=== PATIENT | female | born 1975 | race Caucasian/White ===

== ENCOUNTER 2018-02-02 08:25 | Inpatient (IN) ==
--- NOTE | 2018-02-02 07:21 | Discharge Summary ---
<Gurwinder Paris - Last Filed: 02/02/18 08:44> Orders not resulted at time of discharge: Pending orders 02/02/18 07:13 XR shoulder complete RT [XR] Routine H/H [Hemoglobin and Hematocrit] [HEME] Routine - Discharge Diagnosis (1) Rotator cuff arthropathy of right shoulder Priority: Primary Status: Chronic (2) Status post reverse arthroplasty of right shoulder Priority: Primary Status: Acute - Hospital Course Hospital course: Ms. Nguyễn is a 42 year old female - Time Spent with Patient Total time spent providing and/or coordinating discharge services: - Discharge Medications Home Medications: Albuterol Sulfate [Proair Hfa] 2 puff IH Q4-6H PRN 02/02/18 [History] FLUoxetine HCl [Fluoxetine HCl] 80 mg PO DAILY 02/02/18 [History] Ibuprofen [Motrin] 600 mg PO TID 02/02/18 [History] Loratadine [Claritin] 10 mg PO DAILY 02/02/18 [History] Losartan Potassium [Cozaar] 100 mg PO DAILY 02/02/18 [History] OxyCODONE Immed Rel [Roxicodone 5 MG] 5 mg PO Q6HR PRN 7 Days #28 tablet 02/02/18 [Rx] Tizanidine HCl 4 mg PO HS 02/02/18 [History] Allergies/Adverse Reactions: Allergy/AdvReac Type Severity Reaction Status Date / Time codeine Allergy See Verified 08/15/17 10:08 Comments vancomycin Allergy See Verified 08/15/17 10:08 Comments morphine AdvReac Itching Verified 10/17/17 07:47 Primary care physician: Domitila Cha CNP - Patient Status Disposition: Home, Self-Care Condition: Good - Discharge Instructions Follow Up With: Domitila Cha CNP [Primary Care Provider] - Additional Instructions: Discharge Instructions: Total Shoulder Please call [facility] ([phone]), your Primary Care Physician, or report to the Emergency Room if you have any of the following symptoms: Nausea, vomiting, fever greater that 101.5, swelling, chest pain, shortness of breath, increased pain/redness/drainage/odor for your incision site, numbness/tingling, or any other concerning symptoms. ACTIVITY: Always keep your arm in the sling. Do not raise your arm away from your body. Do not use your arm to help with getting in or out of bed. No weight bearing permitted. Only perform those exercises given to you by your therapist. Incentive Spirometer 10 times an hour. MEDICATIONS: Upon discharge resume your home medications. Take all the medications as prescribed. Take a stool softener if taking narcotic pain medications. Stool softeners are only effective if you drink enough fluids. Drink 6-8 glass of water or fluids a day, unless this is not allowed for another health problem. Despite using stool softeners, if you haven't had a bowel movement in 3 days, please switch to a gentle laxative. Gentle laxatives are sold over the counter. You should have a bowel movement within 24 hours, if not call the office. You will be discharged from the hospital with a prescription for pain medication. You are encouraged to decrease the use of narcotic pain medication as tolerated. Should you require a refill, please call the office. [facility] prescribes narcotic pain medication for only 4-6 weeks after surgery. If you require pain medication beyond this time period, you may be referred to your Primary Care Physician or to the Pain Clinic for further evaluation. Plan ahead for refills on pain medication as many narcotics either need to be picked up at the office or mailed. It is best to call 48-72 hours in advance of needing a prescription refill so you don't run out of medication. To help control the post-operative pain, you may take NSAIDs (Aleve,Advil, Motrin, Ibuprofen, Naprosyn) or Tylenol as prescribed on the bottle in addition to the pain medication. WOUND CARE: Leave the dressing on for 7-10 days. You may change the dressing if it becomes saturated greater than 50%. Do not get the dressing wet at anytime. Wash your hands with antibacterial soap, rinse and dry prior to any wound care. If you have katerine the visiting nurse or rehab facility can remove the stapes 10-14 days after surgery and place steri-strips across the wound. Leave the steri-strips in place until they fall off on their own. You may let water from the shower run on top of the steri-strips. If you do not have a visiting nurse or rehab facility, you will need to return to the office at 10-14 days for the katerine to be removed. If you have itching or redness around the dressing call the office. FOLLOW-UP: Please follow up with your surgeon in the orthopedic clinic, as scheduled <Marianna Santos - Last Filed: 02/02/18 20:05> Orders not resulted at time of discharge: Pending orders 02/02/18 07:13 XR shoulder complete RT [XR] Routine H/H [Hemoglobin and Hematocrit] [HEME] Routine Date of Encounter: 02/02/18 Time of Encounter: 20:01 - Discharge Diagnosis (1) Status post reverse arthroplasty of right shoulder Priority: Primary Status: Acute Comments: Opsite dressing, leave intact until first post-operative visit. Zipline in place, plan to remove at post-operative day #14-16. If dressing becomes >50% saturated, contact office, remove dressing and place appropriate dressing in its place. Do not allow for dressing to get wet. Shoulder Precautions x 6 weeks. Apply cold therapy wrap 3-6x/day for 20 minutes at a time. Encourage ambulation throughout the day. Use Incentive spirometer 10x/hour. Elevate affected extremity above heart as tolerated. NWB to affected upper extremity x 6 weeks. Will remove brace at first post-operative appointment. OK to remove during PT/OT and Home exercises. (2) Rotator cuff arthropathy of right shoulder Priority: Primary Status: Chronic (3) HTN (hypertension) Priority: Secondary Status: Chronic Qualifiers: Hypertension type: essential hypertension Qualified Code(s): I10 - Essential (primary) hypertension (4) Asthma Priority: Secondary Status: Chronic Qualifiers: Asthma severity: unspecified severity Asthma persistence: unspecified Asthma complication type: uncomplicated Qualified Code(s): J45.909 - Unspecified asthma, uncomplicated - Hospital Course Hospital course: Ms. Nguyễn is a 42 year old female status post Right TSR-reverse [place]- . Patient had uneventful postoperative course. Stable for discharge. A&O x 3 Afebrile, vital signs stable. Vital Signs Temp Pulse Resp BP Pulse Ox 02/02/18 14:58 98.8 F 98 14 117/79 97 02/02/18 13:47 98.8 F 92 16 103/84 97 02/02/18 12:47 98.3 F 87 16 122/97 98 02/02/18 12:14 98.9 F 80 16 114/73 100 02/02/18 11:45 98.7 F 90 16 116/65 100 02/02/18 11:32 97.6 F 80 16 115/74 100 02/02/18 11:22 82 16 118/60 100 02/02/18 11:12 97.6 F 75 16 120/62 100 02/02/18 11:02 86 18 121/80 100 02/02/18 10:52 78 16 122/61 100 02/02/18 10:42 98.1 F 77 20 132/60 99 02/02/18 09:20 87 16 134/84 100 02/02/18 09:04 18 98 02/02/18 08:45 98.7 F 95 18 138/85 98 Intake and Output 02/02/18 02/02/18 02/02/18 07:59 15:59 23:59 Intake Total 100 / 100 Output Total 50 / 50 Balance -50 / -50 100 / 100 Intake: IV Fluids 100 / 100 Ancef 2,000 MG In 0.9 % Sodium 100 / 100 Chloride 100 ML @ 200 mls/hr IVPB Q8HR ON LICENSE OF [facility] Rx#:[id number] Output: Estimated Blood Loss 50 / 50 Other: Weight 78.925 kg Patient Weight 02/02/18 23:59 Weight 78.925 kg Labs reviewed. H/H - stable, asymptomatic Short CBC 02/02/18 Range/Units 11:10 Hgb 11.6 D (11.5-15.4) g/dL Hct 33.8 L (35.3-44.9) % Pain control: adequate Participating in PT. All questions and concerns addressed. Educated on use of incentive spirometer. Encouraged ambulation and proper hydration. Patient educated on post-operative restrictions and post-operative care. Assessment and plan: Continue with postoperative care Discharge plan: Home , discharge today with OP PT - Time Spent with Patient Total time spent providing and/or coordinating discharge services: Date of admission: 02/02 Primary care physician: Domitila Cha CNP Anticipated date of discharge: 02/02/18 - Patient Status Functional capacity at discharge: independent ambulation Overall status at discharge: patient is progressing back to baseline
--- NOTE | 2018-02-02 08:33 | History & Physical Report ---
Date of Encounter: 02/02/18 Time of Encounter: 08:33 24 Hour HP Update - Instructions Instructions: If the History and Physical is less than 30 days old and was completed prior to A.M. admission and or procedure and has NOT been updated on calendar day of procedure please complete this update prior to performing procedure. - Update Patient reports changes in Medical Condition: No Changes in examination, assessment, or condition: No Changes in Medication: No Preop tests/diagnostics Reviewed: Yes Surgery Remains Indicated: Yes Consent for Planned Operative Procedure(s) Verified: Yes - Pre-Operative Checklist Preoperative Checklist Indicated: No Prophylactic Antibiotic Ordered: Yes Is VTE Prophylaxis Indicated?: Yes
[2018-02-02] MEDS ORDERED: *HR* Propofol 200 MG/20 ML VIAL IVP ONE (08:35)
[2018-02-02] MEDS ORDERED: Ondansetron 4 MG/2 ML VIAL ONE (08:35)
[2018-02-02] MEDS ORDERED: Lidocaine -MPF 4% 5 ML AMPUL ONE (08:35)
[2018-02-02] MEDS ORDERED: Dexamethasone 4 MG/ML VIAL ONE (08:35)
[2018-02-02] MEDS ORDERED: Lidocaine -MPF 2% 2 ML VIAL ONE (08:35)
[2018-02-02] MEDS ORDERED: *HR* Midazolam HCl 5 MG/5 ML VIAL IVP ONE (08:35)
[2018-02-02] MEDS ORDERED: *HR* Rocuronium Bromide 50 MG/5 ML VIAL ONE ×2 (08:36→10:20)
[2018-02-02] MEDS ORDERED: Ringers Solution, Lactated 1,000 ML IVC SCH ×2 (08:45→11:44)
[2018-02-02] MEDS ORDERED: ROPIVACAINE HCL/PF 0.5% 30 ML VIAL ONE (08:47)
[2018-02-02] MEDS ORDERED: Bupivacaine/Clonidine Syringe 1 EACH SYRINGE ONE (08:48)
[2018-02-02] MEDS ORDERED: CeFAZolin Syr 2,000MG/20 ML 2,000 MG/20 ML SYRINGE IVPB ONE (08:54)
[2018-02-02] MEDS ORDERED: Albuterol 2.5 MG/3 ML NEBULIZER IH ONE ×2 (08:54→10:06)
[2018-02-02] MEDS ORDERED: Albuterol 2.5 MG/3 ML NEBULIZER ONE (08:59)
--- NOTE | 2018-02-02 09:14 | Anesthesia Evaluation PreOp ---
Date of Encounter: 02/02/18 Time of Encounter: 09:05 - Past History Planned Operation: Rt Total Shoulder Replacement Cardiac History: HTN, Hyperlipidemia Pulmonary History: Smoker, Asthma DENTAL PRACTITIONER History: Denies Any Significant HX Other Medical History: Other (Depression) Anesthesia History: No Prior Anesthetic Complications : No (Hysterectomy) Alcohol Use: occasionally Drug use: none Medications and Allergies Albuterol Sulfate [Proair Hfa] 2 puff IH Q4-6H PRN 02/02/18 [History] FLUoxetine HCl [Fluoxetine HCl] 80 mg PO DAILY 02/02/18 [History] Ibuprofen [Motrin] 600 mg PO TID 02/02/18 [History] Loratadine [Claritin] 10 mg PO DAILY 02/02/18 [History] Losartan Potassium [Cozaar] 100 mg PO DAILY 02/02/18 [History] OxyCODONE Immed Rel [Roxicodone 5 MG] 5 mg PO Q6HR PRN 7 Days #28 tablet 02/02/18 [Rx] Tizanidine HCl 4 mg PO HS 02/02/18 [History] Allergy/AdvReac Type Severity Reaction Status Date / Time codeine Allergy See Verified 08/15/17 10:08 Comments vancomycin Allergy See Verified 08/15/17 10:08 Comments morphine AdvReac Itching Verified 10/17/17 07:47 - Meds/Allergy Pre-op Review Medications Reviewed: Yes Allergies Reviewed: Yes Beta Blockers on Current Med List: No Anesthesia Results - Labs Laboratory Tests 01/27/18 01/27/18 09:34 09:34 Hgb 14.9 Hct 44.5 Plt Count 334 Sodium 137 Potassium 4.0 BUN 13 Creatinine 0.76 - Imaging EKG: report reviewed (SR) Anesthesia Exam O2 Sat Height 1.68 m Height 1.68 m Weight 78.925 kg Weight 78.925 kg O2 Sat by Pulse Oximetry 98 Vital Signs Temp Pulse Resp BP Pulse Ox 98.7 F 95 18 138/85 98 02/02/18 08:45 02/02/18 08:45 02/02/18 08:45 02/02/18 08:45 02/02/18 08:45 Height: 5'6 Weight: 174 lbs NPO (# of Hours): MN Pain Scale: 0 - HEENT Pupil (Motor): Pupils equal, EOMI Mallampati: II Denture Type: Upper: Complete Oral Opening: Greater than 3 - DENTAL PRACTITIONER LOC: Oriented DENTAL PRACTITIONER Motor: Normal RUE, Normal LUE, Normal RLE, Normal LLE, Normal Face DENTAL PRACTITIONER Sensory: Normal: RUE, LUE, RLE, LLE, Face - Cardiac Rhythm: Regular Murmur: None JVD: No Carotid Bruit: No - Pulmonary Breath Sounds: bilateral Clear Respiratory Effort: Symmetrical Anesthesia Assess/Plan ASA Score: 2 Modified Rylan Scale for Level of Consciousness: Cooperative, oriented, and tranquil Anesthetic Plan: General, Regional Monitoring Plan: Standard Monitors Recovery Plan: PACU (Discussed GA and RA, agtees to proceed)
--- NOTE | 2018-02-02 09:31 | Anesthesia Procedures ---
Date of Encounter: 02/02/18 Time of Encounter: :20 Procedures: Anesthesia - Nerve Block Procedure Date: 02/02/18 Time: 09:20 Pre-op Diagnosis: Rt Shoulder Arthropathy Surgical Procedure: Rt Total Shoulder Checklist: Correct Patient Identifier Correct side: Right Blood Thinner: No Monitor Applied: EKG, BP, Pulse Oximetry Supplemental Oxygen via Nasal Cannula (L/min): 0 Sedation: Versed (mg): 5 Indication: Post Op Analgesia Pre-op Neuro Deficits: No Block Type: Supraclavicular Catheter placed: No Sterile Technique: Yes Ultrasound used: Yes Anatomy identified: Yes Visual spread of Local: Yes Neuro Stimulation: No Blood on Needle Aspiration: No Smooth Injection of Local: Yes Pain with Injection of Local: No Prep: Chlorhexadine Needle: 22 x 50 mm Stimuplex Local: Ropivacaine, Other (Dexa 8 mg) Volume (cc): 30 Number of Attempts: 1 Complications: None/effective block Vitals: Vital Signs/O2 Sat/Glucose, Most Current Temp Pulse Resp BP Pulse Ox 02/02/18 09:20 87 16 134/84 100 02/02/18 09:04 18 98 02/02/18 08:45 98.7 F 95 18 138/85 98 Comments: 0
[2018-02-02] MEDS ORDERED: EPHEDrine 50 MG/ML VIAL ONE (09:53)
[2018-02-02] MEDS ORDERED: *HR* Vasopressin 20 UNIT/ML VIAL ONE (10:01)
[2018-02-02] MEDS ORDERED: *HR* OxyCODONE Immed Rel 5 MG TABLET PO PRN ×2 (10:06→11:44)
[2018-02-02] MEDS ORDERED: *HR* Promethazine 25 MG/ML VIAL IVP PRN (10:06)
[2018-02-02] MEDS ORDERED: Ondansetron 4 MG/2 ML VIAL IVP ONE (10:06)
[2018-02-02] MEDS ORDERED: Ethanol\\Acetic Acid\\Na Ace\\Ben 1,000 ML IRRIG.SOLN IR ONE (10:10)
--- NOTE | 2018-02-02 10:19 | Orthopedic Operative Note ---
Date of procedure: 02/02/18 Pre-op diagnosis: Right shoulder cuff tear arthropathy Post-op diagnosis: same Procedure: Procedure: Total Shoulder Replacment Reverse, removal of hardware right Estimated blood loss: 50 cc Hardware: Metal and polyethylene replacement: Arthrex 24, +2 , 25 screw glenoid baseplate, 2 4.5 screws. 2 5.5 screw, 39+4 glenosphere, 8 apex humeral stem, poly insert 3 Exam Under anesthesia: Full motion no instability Procedural Notes: Recurrent irreparable tear supraspinatus tendon Operative procedure: The patient was brought to the operating room and placed on the operating room table. After general anesthesia was administered the operative shoulder was examined. Findings were noted. The patient was placed in the modified beachchair position. All pressure points were padded appropriately. And the head was stabilized in the neutral position. The operative extremity was prepped and draped in the sterile surgical fashion. The patient received IV antibiotics prior to skin incision. A standard deltopectoral approach was made to the operative shoulder. Incision was made to the skin and subcutaneous tissue,hemo stasis was obtained with Bovie cautery. Using careful blunt dissection the cephalic vein was identified and mobilized medially. The deltopectoral interval was developed and the clavipectoral fascia was incised. The subscap was released off the lesser tuberosity and tagged with #2 FiberWire suture subscap was irreparable. The humerus was dislocated patient noted to have irreparable tear supraspinatus tendon, and the humeral cut was made along the anatomic neck. Anterior and posterior Bankart retractors were placed to expose the glenoid. The glenoid guide was seated and the centering hole was made. It was reamed with the appropriate reamer. The 24+ 2 with a 25 mm screw baseplate was seated and secured with (2) 4.5 screws and 2 5.5 screw. The baseplate was irrigated and dried and the 39+4 Glenosphere was seated and secured with the Harden taper. The Harden taper was tested and found to be secure the humerus was redislocated and prepared with the diaphyseal reamers, followed by a broaching process up to the appropriate size 8 apex in the patient's anatomic version. The metaphyseal reamer was then utilized. Trial reduction found the shoulder to be relocatable. Trial components were removed and 8 apex stem was impacted in place in the patient's anatomic version. Trial reduction found the shoulder to be relocatable and stable with the appropriate 3. Trial component was removed and the real implant was seated and secured the shoulder was reduced. The shoulder had excellent motion and excell ent stability and no evidence of dislocation. The deep tissue was irrigated with pulse irrigation. The PA close the shoulder. The deltopectoral interval was closed with a running #1 PDS suture, subcutaneous tissue was irrigated and closed with 0 PDS suture, the skin was closed with Dermabond. The patient was placed in a sterile dressing, abduction brace and extubated. The patient was then transferred to the recovery room in stable condition. Anesthesia: GETJazzmine Surgeon: Gurwinder Paris Was there an insurance assistant present: Yes Senior Front End Web Developer: Marianna Santos Estimated blood loss (cc): 50 Condition: stable Disposition: PACU
[2018-02-02] MEDS: *HR* FentaNYL (PF) 100 MCG/2 ML VIAL IVP PRN ×2 (10:52→11:13)
--- NOTE | 2018-02-02 11:34 | Anesthesia Evaluation Post Op ---
Date of Encounter: 02/02/18 Time of Encounter: 12:30 - Vital Signs Vital Signs: Vital Signs/O2 Sat/Glucose, Most Current Temp Pulse Resp BP Pulse Ox 02/02/18 11:22 82 16 118/60 100 02/02/18 11:12 97.6 F 75 16 120/62 100 02/02/18 11:02 86 18 121/80 100 02/02/18 10:52 78 16 122/61 100 02/02/18 10:42 98.1 F 77 20 132/60 99 02/02/18 09:20 87 16 134/84 100 02/02/18 09:04 18 98 02/02/18 08:45 98.7 F 95 18 138/85 98 - Lungs Lungs: Clear Ascult./Percussion - Airway Airway: Non-obstructed - Cardiovascular Regular Rate - Mental Status Mental Status: Alert & Oriented, Answers Appropriately - Pain Pain Scale: 1 - Nausea Vomiting Nausea Vomiting: Not Present - Hydration Hydration: Ice chips - Discharge PostOp Status: Transfer Patient to floor
[2018-02-02 11:44] LABS: Hematocrit 33.8 % (35.3-44.9)
[2018-02-02] MEDS ORDERED: Naloxone 0.4 MG/ML INJ IVP PRN (11:44)
[2018-02-02] MEDS ORDERED: *HR* OxyCODONE/APAP 5/325 TABLET PO PRN (11:44)
[2018-02-02] MEDS ORDERED: Ondansetron 4 MG/2 ML VIAL IVP PRN (11:44)
[2018-02-02] MEDS ORDERED: MOM Conc 10 ML UD.LIQ PO PRN (11:44)
[2018-02-02] MEDS ORDERED: traMADol 50 MG TABLET PO PRN (11:44)
[2018-02-02 11:46] LABS: Hemoglobin 11.6 g/dL (11.5-15.4)
[2018-02-02] MEDS ORDERED: *HR* PHENYLEPHRINE 1,000 MCG/10 ML SYRINGE IVP ONE (12:04)
[2018-02-02 14:59] VITALS: BP 117/79
[2018-02-02] MEDS ORDERED: Ibuprofen 600 MG TABLET PO SCH (15:00)
[2018-02-02] MEDS ORDERED: *HR* Enoxaparin 30 MG/0.3 ML SYRINGE SQ SCH ×2 (18:00)
[2018-02-02] MEDS ORDERED: tiZANidine 4 MG TABLET PO SCH (21:00)
[2018-02-02] MEDS ORDERED: Sennosides 8.6 MG TABLET PO PRN (21:00)
[2018-02-02] MEDS ORDERED: Temazepam 15 MG CAPSULE PO PRN (21:00)
[2018-02-03] MEDS ORDERED: FLUoxetine 20 MG CAPSULE PO SCH (09:00)
[2018-02-03] MEDS ORDERED: Loratadine 10 MG TABLET PO SCH (09:00)
== END 2018-02-02 17:30 | disposition home or self-care (01) | DRG 315 ==
LOC: SAMDAY 08:25 → 3NENU 11:42
PROVIDERS: ADMIT Orthopaedic Surgery; ATTEND Orthopaedic Surgery